=== PATIENT | female | born 1985 | race African-American/Black ===

== ENCOUNTER → 2021-12-05 | Outpatient (CLI) | payer OTHER ==
[2021-12-06 03:07] LABS: RUBELLA AB IGG-REFLAB 2.46 index (Immune >0.99); RUBEOLA (MEASLES) IGG 20.5 AU/mL (Immune >16.4)
== END | disposition home or self-care (01) ==
LOC: LABMN 09:11
PROVIDERS: ATTEND Internal Medicine
DX: Z02.1 Encounter for pre-employment examination (principal)
CPT/HCPCS: 86706; 86735; 86762; 86765; 86787

== ENCOUNTER → 2022-06-26 | Outpatient (CLI) | payer OTHER | END | disposition home or self-care (01) | LOC: RADPV 11:05 | PROVIDERS: ATTEND Internal Medicine | DX: D25.9 Leiomyoma of uterus, unspecified (principal); N83.202 Unspecified ovarian cyst, left side; N83.201 Unspecified ovarian cyst, right side; N85.2 Hypertrophy of uterus; R19.03 Right lower quadrant abdominal swelling, mass and lump | CPT/HCPCS: 76830; 76856 ==

== ENCOUNTER → 2023-01-17 | Outpatient (CLI) | payer OTHER ==
[2023-01-17 09:39] LABS: HEMATOCRIT 22.3 % (36-46); MEAN CORPUSCULAR HEMOGLOBIN 17.9 pg (26.0-34.0); MEAN CORPUSCULAR HGB CONC 30.7 G/dL (31.0-37.0); MEAN CORPUSCULAR VOLUME 59 fL (80-100); PLATELET COUNT (AUTO) 315 K/uL (150-450); RED BLOOD CELL COUNT(AUTO) 3.81 MIL/uL (4.00-5.20); RED CELL DISTRIBUTION WIDTH 18.9 % (11.5-14.5)
[2023-01-17 09:53] LABS: HEMOGLOBIN A1C 5.9 % (3.8-5.6)
[2023-01-17 09:58] LABS: HEMOGLOBIN 6.8 g/dL (12.0-16.0)
[2023-01-17 10:00] LABS: IRON, SERUM 11 mcg/dL (50-175)
[2023-01-17 10:10] LABS: ALANINE AMINOTRANSFERASE 15 U/L (12-78); ALBUMIN 3.6 g/dL (3.4-5.0); ALKALINE PHOSPHATASE 41 U/L (46-116); ANION GAP 9 mmol/L (8-16); ASPARTATE AMINOTRANSFERASE 19 U/L (15-37); BAND NEUTROPHILS % (MANUAL) 2 % (0-5); BILIRUBIN,TOTAL 0.3 mg/dL (0.1-1.0); C-REACTIVE PROTEIN QUANT 0.62 mg/dL (0.00-0.30); CALCIUM, TOTAL 8.7 mg/dL (8.8-10.5); CARBON DIOXIDE 26 mmol/L (22-29); CHLORIDE 101 mmol/L (98-107); CHOL/HDL RATIO 2.1 (3.9-5.7); CHOLESTEROL 164 mg/dL (131-200); CREATININE 0.85 mg/dL (0.60-1.30); FERRITIN 40 ng/mL (8-252); GLOMERULAR FILTR. RATE CALC > 60 mL/min (>60); GLUCOSE,RANDOM 93 mg/dL (70-110); HDL CHOLESTEROL 78 mg/dL (40-60); LDL CHOL (CALC.) 79 mg/dL (0-130); LYMPHOCYTES % (MANUAL) 42 % (22-44); POTASSIUM 3.6 mmol/L (3.5-5.1); SEGMENTED NEUTROPHILS % 56 % (40-70); SODIUM SERUM 136 mmol/L (136-145); THYROID STIMULATING HORMONE 1.47 uIU/mL (0.36-3.74); TOTAL PROTEIN, SERUM 7.9 g/dL (6.4-8.2); TRIGLYCERIDES 33 mg/dL (15-150)
[2023-01-17 10:46] LABS: FOLATE SERUM 12.3 ng/mL (5.4-)
[2023-01-17 11:06] LABS: ERYTHROCYTE SEDIMENTATION RATE 40 MM/HR (0-20)
[2023-01-18 06:07] LABS: HEPATITIS C AB (EIA) Non Reactive (Non Reactive); HIV 1-2 SCREEN 4TH GEN W/RFLX Non Reactive (Non Reactive)
== END | disposition home or self-care (01) ==
LOC: LABMN 08:39
PROVIDERS: ATTEND Internal Medicine
DX: D50.9 Iron deficiency anemia, unspecified (principal); D25.9 Leiomyoma of uterus, unspecified; H40.50X0 Glaucoma secondary to other eye disorders, unspecified eye, stage unspecified; D56.3 Thalassemia minor; H53.483 Generalized contraction of visual field, bilateral; L68.0 Hirsutism; Z68.38 Body mass index [BMI] 38.0-38.9, adult
CPT/HCPCS: 80053; 80061; 82306; 82607; 82728; 82746; 83036; 83540; 84443; 85025; 85651; 86140; 86706; 86803; 87389

== ENCOUNTER → 2023-04-14 | Outpatient (CLI) | payer OTHER ==
[2023-04-17 18:06] LABS: QUANTIFERON, TB GOLD PLUS Negative (Negative)
== END | disposition home or self-care (01) ==
LOC: LABMN 12:59
PROVIDERS: ATTEND Internal Medicine
DX: Z11.1 Encounter for screening for respiratory tuberculosis (principal)
CPT/HCPCS: 86480